=== PATIENT | female | born 1960 | race Caucasian/White ===

== ENCOUNTER 2025-07-10 08:30 | Day surgery (SDC) | payer MEDICARE, BC ==
[~2025-07-10 08:30] MED LIST: Sodium Chloride 0.9% 10 ML Syringe FLUSH PRN; Sodium Chloride 0.9% 10 ML Syringe FLUSH SCH
[2025-07-10] MEDS: Lactated Ringers 1,000 ML IV SCH (08:45)
[2025-07-10] MEDS ORDERED: EPINEPHrine 1 MG/ML SDV ONE (09:01)
[2025-07-10] MEDS ORDERED: Propofol 200 MG/20 ML SDV ONE ×2 (09:38→10:39)
[2025-07-10] MEDS ORDERED: Lactated Ringers 1,000 ML ONE (10:37)
[2025-07-10] MEDS ORDERED: fentaNYL 250 MCG/5 ML SDV ONE (10:39)
[2025-07-10] MEDS ORDERED: Ondansetron 4 MG/2 ML SDV ONE (10:39)
[2025-07-10] MEDS ORDERED: Dexamethasone 4 MG/ML 5 ML MDV ONE (10:40)
[2025-07-10] MEDS ORDERED: Ketorolac 30 MG/ML SDV ONE (10:40)
[2025-07-10] MEDS ORDERED: Acetaminophen/HYDROcodone 325-5 MG Tab PO PRN (11:38)
[2025-07-10 12:57] VITALS: BP 138/70; PULSE 66
== END 2025-07-10 12:48 | disposition home or self-care (01) ==
LOC: JD.SDS 08:30
PROVIDERS: ATTEND Orthopaedic Surgery
DX: S83.241A Other tear of medial meniscus, current injury, right knee, initial encounter (principal); Z88.2 Allergy status to sulfonamides; E78.5 Hyperlipidemia, unspecified; Z79.82 Long term (current) use of aspirin; Z79.899 Other long term (current) drug therapy; X58.XXXA Exposure to other specified factors, initial encounter
CPT/HCPCS: 29881; J0169; J0665; J0690; J1100; J1885; J2405; J2704; J3010; J7120; 01400